=== PATIENT | male | born 1955 | race Caucasian/White ===

== ENCOUNTER 2016-08-14 13:43 | Emergency (ER) | payer BC ==
[~2016-08-14 13:43] MED LIST: ASPIRIN EC81 MG PO; CYCLOBENZAPRINE10 M1 PO; FISH OIL; MULTIVITAMINS1 EAC6 PO; NAPROXEN500 M1 PO; PRAVACHOL40 M1 PO; SIMVASTATIN40 M1 PO
== END 2016-08-14 13:56 ==
LOC: EDMED 13:43
DX: L76.22 Postprocedural hemorrhage of skin and subcutaneous tissue following other procedure (principal)